=== PATIENT | female | born 1995 | race Caucasian/White ===

== ENCOUNTER → 2017-12-13 | Outpatient (CLI) | payer BC | LOC: FIMAGING 18:35 | PROVIDERS: ATTEND Physician Assistant Medical | DX: G43.109 Migraine with aura, not intractable, without status migrainosus (principal) ==

== ENCOUNTER 2018-01-04 07:11 | Emergency (ER) | payer BC ==
[2018-01-04 07:18] VITALS: TEMP 97.7
[2018-01-04] MEDS ORDERED: METOCLOPRAMIDE 10 MG/2 ML VIAL IVP ONE (07:29)
[2018-01-04] MEDS ORDERED: NS 1,000 ML IV ONE (07:29)
[2018-01-04] MEDS ORDERED: DEXAMETHASONE 10 MG/ML VIAL IVP ONE (07:29)
--- NOTE | 2018-01-04 07:49 | EDPHY ---
H & P Time Seen by Provider: 01/04/18 07:29 HPI/ROS: CHIEF COMPLAINT: Migraine headache HISTORY OF PRESENT ILLNESS: 22-year-old female presents with migraine headache. Onset of a severe migraine headache 2 days ago. Since then, the headache has come gone, but has been mainly present. The headache is located left frontal area and is throbbing in nature. The pain is severe and associated with photophobia and nausea. She has a long history of frequent migraine headaches and has tried multiple medications in the past for the headache. She is currently taking Maxalt for headaches and sees a neurologist. Recent MRI of the brain on 12/13/2017 was normal. REVIEW OF SYSTEMS: Constitutional: No fever, no chills Eyes: No visual changes ENT: No sore throat Respiratory: No cough, no shortness of breath Cardiac: No chest pain Gastrointestinal: no vomiting, no abdominal pain Genitourinary: No hematuria, no dysuria Musculoskeletal: No leg pain or swelling Skin: No rash Neurological: no numbness, no weakness Psychiatric: No depression Past Medical/Surgical History: Migraine headaches Social History: No recent alcohol No drug use Smoking Status: Never smoked Physical Exam: General Appearance: Alert, pleasant Eyes: Pupils equal and round, no conjunctival pallor or injection, EOMI ENT, Mouth: Mucous membranes moist Neck: Normal inspection Respiratory: Lungs are clear to auscultation Cardiovascular: Regular rate and rhythm Gastrointestinal: Abdomen is soft and nontender Neurological: Alert, oriented x3, cranial nerves II through XII intact, motor 5 /5, sensory intact to light touch, normal gait Skin: Warm and dry Extremities: Normal inspection Psychiatric: Mood and affect normal Constitutional: Initial Vital Signs Temperature (C) 36.5 C 01/04/18 07:14 Heart Rate 83 01/04/18 07:14 Respiratory Rate 17 01/04/18 07:14 Blood Pressure 138/105 H 01/04/18 07:14 O2 Sat (%) 97 01/04/18 07:14 O2 Delivery Mode Room Air Allergies/Adverse Reactions: No Known Allergies Allergy (Unverified 01/04/18 07:14) Home Medications: Medication Instructions Recorded Maxalt 01/04/18 Sprintec 28 Day Tablet 01/04/18 Venlafaxine 25MG (*) 01/04/18 Verapamil 01/04/18 Medical Decision Making ED Course/Re-evaluation: This patient presents with a severe intractable migraine headache. Neurologic exam is normal and I do not suspect an alternative etiology for the headache Reglan, Benadryl and Decadron IV given. I will reassess her after the medication. 8:30 a.m.-feels much better and wants to go home. Headache is 3/10. Will follow up with her neurologist. Differential Diagnosis: Headache including but not limited to subarachnoid hemorrhage, migraine headache , tension headache and infectious causes such as meningitis, pharyngitis and sinusitis. - Data Points Medications Given: Discontinued Medications Dexamethasone (Decadron Injection) 10 mg IVP EDNOW ONE Stop: 01/04/18 07:30 Last Admin: 01/04/18 07:46 Dose: 10 mg Diphenhydramine HCl (Benadryl Injection) 25 mg IVP EDNOW ONE Stop: 01/04/18 07:30 Last Admin: 01/04/18 07:47 Dose: 25 mg Sodium Chloride (Ns) 1,000 mls @ 0 mls/hr IV ONCE ONE; Wide Open PRN Reason: Protocol Stop: 01/04/18 07:30 Last Admin: 01/04/18 07:47 Dose: 1,000 mls Metoclopramide HCl (Reglan Injection) 10 mg IVP EDNOW ONE Stop: 01/04/18 07:30 Last Admin: 01/04/18 07:46 Dose: 10 mg Departure - Departure Disposition: Home, Routine, Self-Care Clinical Impression: Migraine headache Qualifiers: Migraine type: without aura Status migrainosus presence: with status migrainosus Intractability: intractable Qualified Code(s): G43.011 - Migraine without aura, intractable, with status migrainosus Condition: Good Instructions: Migraine Headache (ED) Referrals: Henrietta Wise PA [Primary Care Provider] - As per Instructions (Call to make an appointment.)
[2018-01-04 08:26] VITALS: BP 144/87; PULSE 81; RESP 18; O2SAT 95
== END 2018-01-04 08:34 | disposition home or self-care (01) ==
DX: G43.011 Migraine without aura, intractable, with status migrainosus (principal); E86.9 Volume depletion, unspecified
CPT/HCPCS: 96374; J1100; J1200; J2765

== ENCOUNTER 2018-03-07 06:10 | Emergency (ER) | payer BC ==
[2018-03-07 06:16] VITALS: BP 161/117
--- NOTE | 2018-03-07 06:28 | EDPHY ---
H & P Stated Complaint: L ANKLE INJ WORSENING/BOLDERING Time Seen by Provider: 03/07/18 06:28 HPI/ROS: HPI CHIEF COMPLAINT: Left ankle pain. HISTORY OF PRESENT ILLNESS: Patient 23-year-old female she is otherwise healthy no significant medical history she presents emergency room with pain to the left lateral malleolus. She states she was [place] yesterday fell on her left ankle with an inversion mechanism of her left foot. States she had some mild pain yesterday however woke up this morning with worsening pain and swelling. Denies any knee pain. Denies any other areas of injury. Pain is 6/ 10 located left lateral malleolus. Past Medical History: No medical history Past Surgical History: No surgical history Social History: Denies daily use drugs alcohol tobacco. Family History: Noncontributory ROS REVIEW OF SYSTEMS: A comprehensive 10 point review of systems is otherwise negative aside from elements mentioned in the history of present illness. Exam Constitutional appears well nontoxic no acute distress triage nursing summary reviewed, vital signs reviewed, awake/alert. Eyes normal conjunctivae and sclera, EOMI, PERRLA. HENT normal inspection, atraumatic, moist mucus membranes, no epistaxis, neck supple/ no meningismus, no raccoon eyes. Respiratory clear to auscultation bilaterally, normal breath sounds, no respiratory distress, no wheezing. Cardiovascular rate normal, regular rhythm, no murmur, no edema, distal pulses normal. Gastrointestinal soft, non-tender, no rebound, no guarding, normal bowel sounds, no distension, no pulsatile mass. Genitourinary no CVA tenderness. Musculoskeletal left lower extremity: Good distal pulse, good cap refill, swelling noted over left lateral malleolus. Tender palpation over the left lateral malleolus. Full range of motion left ankle. Compartments soft. Good distal pulse, good cap refill. no midline vertebral tenderness, full range of motion, no calf swelling, no tenderness of extremities, no meningismus, good pulses, neurovascularly intact. Skin pink, warm, & dry, no rash, skin atraumatic. Neurologic awake, alert and oriented x 3, AAOx3, moves all 4 extremities equally, motor intact, sensory intact, CN II-XII intact, normal cerebellar, normal vision, normal speech. Psychiatric normal mood/affect. Heme/Lymph/Immune no lymphadenopathy. Differential Diagnosis: Includes but is not limited to in a particular order ankle sprain, left ankle contusion, soft tissue injury, left ankle fracture Medical Decision Making: Plan for this patient x-ray left ankle to rule out fracture. Recommend crutches, walking boot, recommend ice, anti-inflammatory pain medicine. Follow up Orthopedics. Re-evaluation: X-ray of the left ankle. This was reviewed by myself. Negative for acute fracture however soft tissue swelling. Specifically over the left lateral malleolus. Patient be placed in crutches, walking boot. Prescription given for ibuprofen for mild pain [place] for severe pain. Recommend elevation, ice, and return emergency room if there is worsening symptoms questions or concerns. Orthopedic referral given. Patient is comfortable this plan. Source: Patient - Personal History LMP (Females 10-55): 8-14 Days Ago Current Tetanus Diphtheria and Acellular Pertussis (TDAP): Yes - Medical/Surgical History Hx Asthma: No Hx Chronic Respiratory Disease: No Hx Diabetes: No Hx Cardiac Disease: No Hx Renal Disease: No Hx Cirrhosis: No Hx Alcoholism: No Hx HIV/AIDS: No Hx Splenectomy or Spleen Trauma: No Other PMH: migraine - Social History Smoking Status: Never smoked Constitutional: Initial Vital Signs Temperature (C) 36.6 C 03/07/18 06:14 Heart Rate 96 03/07/18 06:14 Respiratory Rate 16 03/07/18 06:14 Blood Pressure 161/117 H 03/07/18 06:14 O2 Sat (%) 97 03/07/18 06:14 O2 Delivery Mode Room Air Allergies/Adverse Reactions: No Known Allergies Allergy (Verified 03/07/18 06:13) Home Medications: Medication Instructions Recorded Maxalt 01/04/18 Sprintec 28 Day Tablet 01/04/18 Venlafaxine 25MG (*) 01/04/18 Hydrocodone/APAP 5/325 [[place] 1 - 2 tab PO Q4H PRN #10 tab 03/07/18 5/325] Ibuprofen [Motrin (*)] 800 mg PO Q6-8PRN #10 tab 03/07/18 Departure - Departure Disposition: Home, Routine, Self-Care Clinical Impression: Ankle sprain Qualifiers: Encounter type: initial encounter Involved ligament of ankle: unspecified ligament Laterality: left Qualified Code(s): S93.402A - Sprain of unspecified ligament of left ankle, initial encounter Condition: Good Instructions: Ankle Sprain (ED) Additional Instructions: 1. Recommend icing her ankle and keeping it elevated over the next 72 hr. 2. Take anti-inflammatory pain medicine as needed. Tylenol Motrin. 3. Walking boot and crutches to help ambulate. 4. If you continue to have worsening pain, follow up with Orthopedics. Referrals: MATHIEU ALVARENGA [Other] - As per Instructions Garland Nava MD [Medical Doctor] - As per Instructions Prescriptions: Hydrocodone/APAP 5/325 [[place] 5/325] 1 - 2 tab PO Q4H PRN #10 tab PRN Reason: Pain, Moderate Ibuprofen [Motrin (*)] 800 mg PO Q6-8PRN #10 tab
== END 2018-03-07 06:49 | disposition home or self-care (01) ==
DX: S93.402A Sprain of unspecified ligament of left ankle, initial encounter (principal); X50.9XXA Other and unspecified overexertion or strenuous movements or postures, initial encounter; Y92.89 Other specified places as the place of occurrence of the external cause
CPT/HCPCS: L4386